=== PATIENT | male | born 1985 | race Caucasian/White ===

== ENCOUNTER 2020-12-22 15:32 | Emergency (ER) | payer OTHER ==
[~2020-12-22 15:32] MED LIST: CEFUROXIME500 MG PO; NORCO 5-325 TA1 EACH PO
[2020-12-22] MEDS ORDERED: CLEOCIN HCL300 MG PO (16:56)
== END 2020-12-22 17:48 | disposition home or self-care (01) ==
LOC: ER1 15:32
DX: K04.7 Periapical abscess without sinus (principal); R22.0 Localized swelling, mass and lump, head
CPT/HCPCS: 96372; 99283; J0561